=== PATIENT | female | born 1980 | race Caucasian/White ===

== ENCOUNTER 2018-06-26 19:16 | Emergency (ER) | payer OTHER ==
[2018-06-26 19:39] VITALS: BP 142/65
--- NOTE | 2018-06-26 19:52 | UC ---
FLU HPI - HPI Summary HPI Summary: 37 y/o female presents to the urgent care c/o nasal congestion w/ clear nasal discharge, WARREN, body aches, low grade fever, chills for the past 3 days. Pt reports her daughter was exposed to the flu at school. Pt has been taking Alkaseltzer cold and flu to alleviate symptpms. Pt denies SOB, chest pain, abdominal pain, N/V/D. - History of Current Complaint Chief Complaint: UCGeneralIllness Stated Complaint: FEVER/COUGH/FLU EXPOSURE Time Seen by Provider: 06/26/18 19:44 Hx Obtained From: Patient Hx Last Menstrual Period: 08/04/14 ?: No Onset/Duration: Gradual Onset, Lasting Days - 3 days Severity Currently: Mild Severity Initially: Moderate Pain Intensity: 4 - body aches Pain Scale Used: 0-10 Numeric Associated Signs & Symptoms: Positive: Fever - low grade at home, Myalgia, Cough , Nasal Congestion - yellowish, Headache. Negative: Diarrhea - Risk Factors Influenza Risk Factors: Negative - Allergy/Home Medications Allergies/Adverse Reactions: Allergies Allergy/AdvReac Type Severity Reaction Status Date / Time No Known Allergies Allergy Verified 06/26/18 19:34 Home Medications: Home Medications Dm/PE/Acetaminophen/Chlorphenr [Aggie-Wann Plus Cld-Cough Cp] 1 cap PO Q6HR PRN 06/26/18 [History Confirmed 06/26/18] Levonorgestrel (Iud) [Mirena IUD] 20 mcg IU ONCE 06/26/18 [History Confirmed ] PMH/Surg Hx/FS Hx/Imm Hx Previously Healthy: Yes - Pt denies PMHX - Surgical History Surgical History: Yes Surgery Procedure, Year, and Place: LEFT ACL RECONSTRUCTION. 2006 - Family History Known Family History: Positive: None - Pt denies FMHX - Social History Occupation: Employed Full-time Lives: With Family Alcohol Use: Occasionally Substance Use Type: None Smoking Status (MU): Former Smoker When Did the Patient Quit Smoking/Using Tobacco: 9 MONTHS AGO Review of Systems All Other Systems Reviewed And Are Negative: Yes Constitutional: Positive: Fever, Chills, Other - body aches Skin: Positive: Negative Eyes: Positive: Negative ENT: Positive: Nasal Discharge - yellowish, Sinus Congestion, Sinus Pain/ Tenderness Respiratory: Positive: Cough - dry Cardiovascular: Positive: Negative Gastrointestinal: Positive: Negative Genitourinary: Positive: Negative Motor: Positive: Negative Neurovascular: Positive: Negative Musculoskeletal: Positive: Negative Neurological: Positive: Headache Psychological: Positive: Negative Is Patient Immunocompromised?: No Physical Exam - Summary Physical Exam Summary: VITAL SIGNS: Reviewed. GENERAL: Patient is a well developed and nourished obese female who is sitting comfortable in the examining table. Patient is not in any acute respiratory distress. HEAD AND FACE: No signs of trauma. No ecchymosis, hematomas or skull depressions. No sinus tenderness. EYES: PERRLA, EOMI x 2, No injected conjunctiva, no nystagmus. No photophobia. EARS: Hearing grossly intact. Ear canals and tympanic membranes are within normal limits. Nose: edematous and erythematous nasal mucosa w/ clear nasal discharge. MOUTH: Positive no erythema, no tonsillar enlargement. Uvula in midline. NECK: Supple, trachea is midline, Positive anterior cervical lymphadenopathy, no JVD, no carotid bruit, no c-spine tenderness, neck with full ROM. No meningeal signs, no Kernig's or brudzinskis signs. CHEST: Symmetric, no tenderness at palpation LUNGS: Clear to auscultation bilaterally. No wheezing or crackles. CVS: Regular rate and rhythm, S1 and S2 present, no murmurs or gallops appreciated. ABDOMEN: Soft, non-tender. No signs of distention. No rebound no guarding, and no masses palpated. Bowel sounds are normal. EXTREMITIES: FROM in all major joints, no edema, no cyanosis or clubbing. NEURO: Alert and oriented x 3. No acute neurological deficits. Speech is normal and follows commands. SKIN: Dry and warm Triage Information Reviewed: Yes Vital Signs: Initial Vital Signs Temp 98.5 F 06/26/18 19:35 Pulse 94 06/26/18 19:35 Resp 18 06/26/18 19:35 BP 142/65 06/26/18 19:35 Pulse Ox 97 06/26/18 19:35 Flu Course/Dx - Course Course Of Treatment: 37 y/o female presents to the urgent care c/o nasal congestion w/ clear nasal discharge, WARREN, body aches, low grade fever, chills for the past 3 days. Pt reports her daughter was exposed to the flu at school. Pt has been taking Alkaseltzer cold and flu to alleviate symptpms. Pt denies SOB , chest pain, abdominal pain, N/V/D. Hx obtained. Pt w/ URI on examination. Influenza A&B ordered: result: Influenza A positive.Pt Rx Tamiflu and ibuprofen PO to alleviates symptoms. Advised on hand washing and wear a mask to avoid spreading. Pt advised to rest, increase fluid intake, eat well and avoid strenuous exercise. If symptoms do not improve or worsen advised to return to the urgent care or f/u with her PCP for further evaluation and treatment.Pt's BP is elevated today advised to decrease salt in diet, monitor BP and f/u with PCP for further management. Pt understood and agreed with plan of care. - Differential Dx/Diagnosis Differential Diagnosis/HQI/PQRI: Bronchitis, Influenza, Upper Respiratory Infection Provider Diagnosis: Influenza A, Elevated BP without diagnosis of hypertension Discharge - Sign-Out/Discharge Documenting (check all that apply): Patient Departure - D/c home All imaging exams completed and their final reports reviewed: No Studies - Discharge Plan Condition: Stable Disposition: HOME Prescriptions: Ibuprofen TAB* [Motrin TAB* 600 MG] 600 mg PO Q6H PRN #30 tab PRN Reason: Pain Oseltamivir CAP* [Tamiflu CAP*] 75 mg PO BID #10 cap Patient Education Materials: Influenza (ED), Low-Sodium Diet (ED) Forms: *Work Release Referrals: [facility] [Outside] - 3 Days No Primary Care Phys,NOPCP [Primary Care Provider] - Additional Instructions: 1- Please take the full course of the antiviral to avoid resistance. Encourage hand washing and wear a mask to avoid spreading. 2-Please Ibuprofen PO q6-8hrs prn as instructed after meals to alleviate fever , and sore throat. Increase fluid intake, eat well, rest and avoid strenuous exercise 3-If symptoms do not improve or worsen please return to the urgent care or f/u with your PCP in 3 days for further evaluation and treatment. 4- Your BP is elevated today. please decrease salt in your diet, monitor BP and if it continues to be elevated please f/u with your PCP for further management - Billing Disposition and Condition Condition: STABLE Disposition: Home - Attestation Statements Provider Attestation: I was available for consult. This patient was seen by the MYA. The patient was not presented to, seen by, or examined by me. -Rani
== END 2018-06-26 20:19 | disposition home or self-care (01) ==
LOC: UCCORT 19:16
DX: J09.X2 Influenza due to identified novel influenza A virus with other respiratory manifestations (principal); R03.0 Elevated blood-pressure reading, without diagnosis of hypertension; Z87.891 Personal history of nicotine dependence
CPT/HCPCS: 99212; G0463

== ENCOUNTER 2018-12-28 11:00 | Emergency (ER) | payer OTHER ==
--- NOTE | 2018-12-28 13:17 | UC ---
General HPI - HPI Summary HPI Summary: 1. pt c/o dizziness for 1 month. she describes it as feeling wavy and off balance. it occurs with changes in portion and resolves with lying flat. she denies any headache, changes in vision/speech and focal numbness/weakness. she reports chronic nasal congestion . 2. she is c/o a muscle spasm in her R upper back inside the shoulder blade for about 2 weeks. it improves when she massages the area. no hx injury. 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 no cp, sob or numb/weakness to arms. - History of Current Complaint Chief Complaint: UCEar Stated Complaint: RIGHT EAR CONCERN Time Seen by Provider: 12/28/18 13:07 Hx Obtained From: Patient Hx Last Menstrual Period: Mirena IUD Pain Intensity: 5 - Allergy/Home Medications Allergies/Adverse Reactions: Allergies Allergy/AdvReac Type Severity Reaction Status Date / Time No Known Allergies Allergy Verified 12/28/18 12:42 PMH/Surg Hx/FS Hx/Imm Hx Previously Healthy: Yes - Surgical History Surgical History: Yes Surgery Procedure, Year, and Place: Left ACL, 2006 - Family History Known Family History: Positive: None - Pt denies FMHX - Social History Occupation: Employed Full-time Alcohol Use: Occasionally Substance Use Type: None Smoking Status (MU): Former Smoker When Did the Patient Quit Smoking/Using Tobacco: 2018 Review of Systems All Other Systems Reviewed And Are Negative: Yes Eyes: Negative: Blurred Vision, Diplopia ENT: Positive: Ear Ache - "pressure" Respiratory: Negative: Shortness Of Breath, Cough Cardiovascular: Negative: Palpitations, Chest Pain Neurovascular: Negative: Decreased Sensation Musculoskeletal: Negative: Decreased ROM Neurological: Negative: Headache, Weakness, Paresthesia, Numbness Physical Exam Triage Information Reviewed: Yes Appearance: Well-Appearing Vital Signs: Initial Vital Signs Temp 97.8 F 12/28/18 12:39 Pulse 89 12/28/18 12:39 Resp 16 12/28/18 12:39 BP 154/62 12/28/18 12:39 Pulse Ox 100 12/28/18 12:39 Vital Signs Reviewed: Yes Eyes: Positive: Conjunctiva Clear, Other: - PERRL, EOMI. ENT: Positive: Pharynx normal, TMs normal. Negative: Nasal congestion, Nasal drainage Neck: Positive: Supple, Nontender, No Lymphadenopathy Respiratory: Positive: Lungs clear, Normal breath sounds, No respiratory distress Cardiovascular: Positive: RRR, No Murmur Abdomen Description: Positive: Nontender, No Organomegaly, Soft Bowel Sounds: Positive: Present Musculoskeletal: Positive: Other: - Back : no deformity or rash. spine is non tender. tender over R trapezius/medial scapular border areas. ROM is intact throughout. Neurological: Positive: Other: - A&O x 3. CN 2-12 intact. 5/5 strength, 2+ reflexes and sensation intact x 4. Steady gait. Negative Rhomberg and pronator drift. performs rapid alternating moves with ease. Upon going from lying to sitting up, pt c/o dizziness that resolved with rest. Psychological: Positive: Age Appropriate Behavior Skin Exam: Normal Skin: Negative: Rashes Course/Dx - Differential Dx - Multi-Symptom Differential Diagnoses: Other - no concern for central vertigo. hx and PE supports peripheral vertigo. Repeat BP manual cuff at time of exam 136/77. - Diagnoses Provider Diagnosis: Trapezius muscle spasm, Dizziness Discharge - Sign-Out/Discharge Documenting (check all that apply): Patient Departure All imaging exams completed and their final reports reviewed: No Studies - Discharge Plan Condition: Stable Disposition: HOME Prescriptions: Meclizine TAB* [Antivert 12.5 TAB*] 25 mg PO TID PRN #10 tab PRN Reason: Dizziness Naproxen [Naprosyn 500 mg tab] 500 mg PO BID 5 Days #10 tablet Patient Education Materials: Dizziness (ED), Muscle Spasm (ED) Referrals: ADILENE Schroeder [Medical Doctor] - 5 Days - Billing Disposition and Condition Condition: STABLE Disposition: Home - Attestation Statements Provider Attestation: I was available for consult. This patient was seen by the MYA. The patient was not presented to , seen by or examined by -Norma Singletary MD
[2018-12-28 13:28] VITALS: BP 136/77
== END 2018-12-28 13:36 | disposition home or self-care (01) ==
LOC: UCCORT 11:00
DX: M62.830 Muscle spasm of back (principal); R42 Dizziness and giddiness; Z87.891 Personal history of nicotine dependence
CPT/HCPCS: 99212; G0463